=== PATIENT | female | born 1975 | race Two or more races ===

== ENCOUNTER 2017-06-01 02:20 | Emergency (ER) | payer SELFPAY ==
[~2017-06-01] VITALS: Ht 175.3 cm; Wt 102.0 kg
[2017-06-01 02:30] VITALS: BP 115/63
== END 2017-06-01 06:30 | disposition left against medical advice (07) ==
LOC: ER 02:20
DX: M54.5 Low back pain (principal); Z53.21 Procedure and treatment not carried out due to patient leaving prior to being seen by health care provider